=== PATIENT | female | born 1955 | race Caucasian/White ===

== ENCOUNTER 2018-06-06 08:22 | Observation (INO) ==
--- NOTE | 2018-06-04 09:37 | Anesthesiology Consultation ---
Date of Service June 04, 2018 Assessment & Plan Chart Review Chart Review: Acceptable Risk for Surgery and Patient NOT seen in Pre Admission Testing Consults Requested none ASA ASA4 Proposed Anesthesia Anesthesia Type: General History Surgery Operation Date: 06/06/18 10:35 Proposed Procedures p Bilateral Direct Laryngoscopy, - Jenn Jose MD s Esophagoscopy, - Jenn Jose MD s Tonsillectomy, Uvulopalatoplasty - Jenn Jose MD Height/Weight Height: 5 ft 1 in Weight: 112.037 kg Allergies Allergy/AdvReac Type Severity Reaction Status Date / Time scopolamine Allergy swelling Verified 05/30/18 13:18 Medications Home Medications Medication Instructions Recorded Confirmed Last Taken acetaminophen [Tylenol Extra 500 - 1,000 mg PO QID PRN 05/30/18 05/30/18 Unknown Strength] aspirin [Aspirin Low Dose] 81 mg PO QAM 05/30/18 05/30/18 Unknown fluticasone-vilanterol [Breo 1 inh INHALATION QAM 05/30/18 05/30/18 Unknown Ellipta] furosemide 20 mg PO DAILY PRN 05/30/18 05/30/18 Unknown losartan 50 mg PO QAM 05/30/18 05/30/18 Unknown montelukast [Singulair] 10 mg PO QAM 05/30/18 05/30/18 Unknown pantoprazole [Protonix] 40 mg PO QAM 05/30/18 05/30/18 Unknown tiotropium bromide [Spiriva with 1 cap INHALATION QAM 05/30/18 05/30/18 Unknown HandiHaler] Past Medical History Medical History Asthma GERD (gastroesophageal reflux disease) Glaucoma Hx of congestive heart failure Hypertension Morbid obesity Nausea and vomiting after administration of anesthetic agent Nodular thyroid disease Osteoarthritis Sleep apnea Past Family History Family History Father Family history of diabetes mellitus Past Surgical History Surgical History History of carpal tunnel surgery both hands History of cholecystectomy Hx of cardiac catheterization 2017? [place]; Was having s/s chest pain and nausea. Hx of cervical discectomy x2 Hx of section x2 Hx of foot surgery left Hx of shoulder surgery left Past Anesthesia History No Hx of Anesthesia Complications and No Family Hx of Anesthesia Complications History of PONV Yes Motion Sickness Screening History of Motion Sickness: No Social History Smoking Status: Former smoker Do You Dip or Chew Tobacco: No Smoking End Date: 30 yr ago Hx Alcohol Use: Yes Alcohol type: wine alcohol intake frequency: holidays/special occasions only Hx Substance Use: No Exercise / Class Metabolic Activity III < 4 Walking/Shop/Light housework Testing Electrocardiogram Date: 01/21/18 Findings: + NSR @ (at 81) Echocardiogram Date: 04/02/17 EF: 60 LV Function: normal RWMA: + none Valvular Disease: + no significant valvular disease Laboratory Results WBC: 8.42 Hc.1 Hct: 43 PLATELETS: 227 SODIUM: 143 POTASSIUM: 4.3 CHLORIDE: 108 CO2: 28 BUN: 20.2 CREATININE: 0.95 GLUCOSE: 112 PT: PTT: INR: UA: TYPE AND SCREEN:
--- NOTE | 2018-06-04 13:55 | History & Physical Report ---
Date of Service June 04, 2018 Assessment & Plan (1) Sleep apnea: direct laryngoscopy, esophagoscopy, tonsillectomy, uvulopalatoplasty (2) Laryngitis from reflux of stomach acid: direct laryngoscopy and esophagoscopy History of Present Illness Chief Complaint: sleep apnea, hoarseness 63 yo with sleep apnea, poor tolerance to CPAP, also hoarseness and sore throat Allergies Allergy/AdvReac Type Severity Reaction Status Date / Time scopolamine Allergy swelling Verified 05/30/18 13:18 Home Medications Home Medications Medication Instructions Recorded Confirmed Type acetaminophen [Tylenol Extra 500 - 1,000 mg PO QID PRN 05/30/18 05/30/18 History Strength] aspirin [Aspirin Low Dose] 81 mg PO QAM 05/30/18 05/30/18 History fluticasone-vilanterol [Breo 1 inh INHALATION QAM 05/30/18 05/30/18 History Ellipta] furosemide 20 mg PO DAILY PRN 05/30/18 05/30/18 History losartan 50 mg PO QAM 05/30/18 05/30/18 History montelukast [Singulair] 10 mg PO QAM 05/30/18 05/30/18 History pantoprazole [Protonix] 40 mg PO QAM 05/30/18 05/30/18 History tiotropium bromide [Spiriva with 1 cap INHALATION QAM 05/30/18 05/30/18 History HandiHaler] Past Med/Surg History Medical History Asthma GERD (gastroesophageal reflux disease) Glaucoma Hx of congestive heart failure Hypertension Morbid obesity Nodular thyroid disease Osteoarthritis Sleep apnea Surgical History History of carpal tunnel surgery both hands History of cholecystectomy Hx of cardiac catheterization 2017? [place]; Was having s/s chest pain and nausea. Hx of cervical discectomy x2 Hx of section x2 Hx of foot surgery left Hx of shoulder surgery left Nausea and vomiting after administration of anesthetic agent Family History Father Family history of diabetes mellitus Social History Preferred Language: Belarusian Communication Ability: Effective Beliefs That Will Affect Care: None Current Living Situation: Alone Other Information That Helps Us Care for You: No Feels Safe at Home: Yes Safety Concerns: Feels Safe At This Time Smoking Status: Former smoker Hx Alcohol Use: Yes Hx Substance Use: No Physical Exam Constitutional: WD/WN, vitals as above Eyes: PERRL, conjunctivae normal, anicteric sclerae ENMT: Mouth: + oropharynx abnormality (tonsils large, uvula swollen) Neck: trachea midline, no thyromegaly Respiratory: normal respiratory effort, lungs clear to auscultation Cardiovascular: RRR, no murmur, no edema
[~2018-06-06 08:22] MED LIST: CEFAZOLIN 2000MG 2,000 MG/15 ML SYR IV SCH; LR 15ML/HR IV SCH
[2018-06-06] MEDS ORDERED: NEOSTIGMINE METHYLSULFATE 5 MG/5 ML SYR ONE (11:56)
[2018-06-06] MEDS ORDERED: PROPOFOL IV EMULSION 10 MG/ML 20 ML VIAL IV ONE (11:56)
[2018-06-06] MEDS ORDERED: LIDOCAINE HCL 2% 2 ML VIAL/AMP(20MG/ML) INFIL ONE (11:56)
[2018-06-06] MEDS ORDERED: GLYCOPYRROLATE 0.2 MG/ML VIAL ONE (11:56)
[2018-06-06] MEDS ORDERED: DEXAMETHASONE SOD INJ 4 MG/ML VIAL ONE (11:56)
[2018-06-06] MEDS ORDERED: ONDANSETRON INJ 2 MG/ML 2 ML VIAL ONE (11:56)
[2018-06-06] MEDS ORDERED: MIDAZOLAM HCL 1 MG/ML 2ML VIAL ONE (11:57)
[2018-06-06] MEDS ORDERED: fentaNYL citrate 100 MCG/2 ML VIAL ONE ×2 (11:57)
--- NOTE | 2018-06-06 12:14 | History & Physical Bridge Note ---
Date of Service June 06, 2018 History & Physical Bridge Note I have examined the patient, reviewed the History & Physical and in the interval since the performance of the History & Physical I have noted the following changes of clinical significance: no changes noted
[2018-06-06] MEDS ORDERED: BUPIVACAINE/EPINEPHRINE 0.5% MPF 1:200,000 30 ML VIAL ONE (12:22)
[2018-06-06] MEDS ORDERED: ONDANSETRON INJ 2 MG/ML 2 ML VIAL IV PRN (12:23)
[2018-06-06] MEDS ORDERED: fentaNYL citrate 100 MCG/2 ML VIAL IV PRN (12:23)
[2018-06-06] MEDS ORDERED: ATROPINE SULFATE 0.1 MG/ML 10ML SYR IV PRN (12:23)
[2018-06-06] MEDS ORDERED: ePHEDrine sulfate 50 MG/ML AMP IV PRN (12:23)
[2018-06-06] MEDS ORDERED: ALBUTEROL 0.083% NEBU SOLN 3 ML VIAL INH PRN (12:23)
[2018-06-06] MEDS ORDERED: ALBUTEROL 0.083% NEBU SOLN 3 ML VIAL NEB STA (12:26)
[2018-06-06] MEDS ORDERED: ACETAMINOPHEN/HYDROCODONE ELIX 15 ML/CUP UDP PO PRN (13:40)
[2018-06-06] MEDS ORDERED: LORazepam 1 MG/2 ML VIAL IV PRN (13:40)
--- NOTE | 2018-06-06 13:45 | Operative Report ---
Post Operative Report Pre & Post Diagnosis Operation Date: 06/06/18 10:35 Pre-Op Diagnosis: Sleep Apnea; Chronic Laryngitis Post-Op Diagnosis: Sleep Apnea; Chronic Laryngitis Procedure Operation Date: 06/06/18 10:35 Actual Procedures p Direct Laryngoscopy,(Not Applicable) - Jenn Jose MD s Esophagoscopy,(Not Applicable) - Jenn Jose MD s Bilateral Tonsillectomy, Uvulopalatoplasty(Bilateral) - Jenn Jose MD Surgeon Jenn Jose MD Maintenance Mechanic Elevators None Estimated Blood Loss 100 Findings Consistent with Post-Op Diagnosis Specimens Right and left tonsil and uvula Anesthesia Type General Complications none Disposition Accompanied Patient To Recovery: Yes Disposition: Recovery Room Indications 63-year-old with constant lump sensation in the throat and also significant sleep apnea and intolerant of CPAP Description of Procedure She was brought to the operating room placed in the supine position general endotracheal anesthesia was induced and she was prepped and draped in the usual sterile manner. Dedo laryngoscope was used to visualize the hypopharynx epiglottis, vallecula and piriform sinus areas which were all noted to be normal. The endolarynx was inspected there was moderate edema of the vocal cords with no actual polyp formation. Rigid esophagoscopy was performed using the 30 cm rigid esophagoscope visualizing the cervical and mid esophagus noting the mucosa to be free of lesions. The esophagus scope was withdrawn. The mouthgag was placed and the peritonsillar area was injected with 0.5% Sensorcaine with 1-200,000 strength epinephrine. The soft palate was retracted using the red Finney catheter there was minimal adenoid tissue. Tonsillectomies were performed using the plasma knife. The uvula was resected of its anterior half using the #12 blade and hemostasis was controlled using the plasma wand. The flaps were cut with a V cut into the palatoglossus fold and the flap cut into the palatopharyngeus fold. The flap was rotated laterally into the V cut. All the mucosal edges were approximated with continuous 2-0 chromic sutures one on each side and tied in the midline at the uvula. The pharynx was irrigated clean with saline and she tolerated the procedure well and was taken to the recovery area in satisfactory condition. I attest to the content of the Intraoperative Record and any orders documented therein. Any exceptions are noted below.
--- NOTE | 2018-06-06 14:22 | Anesthesiology Progress Note ---
Date of Service June 06, 2018 Anesthesia Post Procedure Vital Signs Vital Signs: Temp Pulse Pulse Resp BP Pulse Ox 06/06/18 14:15 77 18 155/82 H 98 06/06/18 14:05 70 18 150/80 H 96 06/06/18 13:55 69 18 148/80 H 97 06/06/18 13:48 36.0 C L 78 18 143/75 H 91 06/06/18 12:30 89 18 100 06/06/18 08:59 36.6 C 92 H 22 174/91 H 97 Notes Mental Status: alert / awake / arousable and participated in evaluation Patient Amnestic to Procedure: Yes Nausea / Vomiting: adequately controlled Pain: adequately controlled Airway Patency, RR, SpO2: stable & adequate BP & HR: stable & adequate Hydration State: stable & adequate Anesthetic Complications: no major complications apparent and Pt Satisfied with anesthetic care
[2018-06-06] MEDS: ONDANSETRON INJ 2 MG/ML 2 ML VIAL IV PRN (15:44)
[2018-06-06] MEDS: D5W AND 1/2NSS + 20MEQ KCL 20 MEQ/1,000 ML BAG IV SCH (17:18)
[2018-06-06] MEDS: MoRPHine SULFATE 2 MG/ML CARP IV PRN (18:43)
[2018-06-06] MEDS ORDERED: Nursing to Pharmacy Communication ONE (19:00)
[2018-06-06] MEDS ORDERED: FUROSEMIDE 20 MG TAB PO PRN (19:00)
[2018-06-06] MEDS: MoRPHine SULFATE 4 MG/ML 1 ML CARP\\VIAL IV PRN (22:46)
[2018-06-07] MEDS: MoRPHine SULFATE 4 MG/ML 1 ML CARP\\VIAL IV PRN (05:04)
--- NOTE | 2018-06-07 07:04 | Discharge Summary ---
Date of Service June 07, 2018 Admission HPI Per Admitting Provider 63 yo with sleep apnea, poor tolerance to CPAP, also hoarseness and sore throat Admission Exam (Per Admitting) Constitutional WD/WN, vitals as above Eyes PERRL, conjunctivae normal, anicteric sclerae ENMT Mouth: + oropharynx abnormality (tonsils large, uvula swollen) Neck trachea midline, no thyromegaly Respiratory normal respiratory effort, lungs clear to auscultation Cardiovascular RRR, no murmur, no edema Discharge Data Procedures Performed Operation Date: 06/06/18 10:35 Actual Procedures p Direct Laryngoscopy,(Not Applicable) - Jenn Jose MD s Esophagoscopy,(Not Applicable) - Jenn Jose MD s Bilateral Tonsillectomy, Uvulopalatoplasty(Bilateral) - Jenn Jose MD Hospital Course (1) Sleep apnea: direct laryngoscopy, esophagoscopy, tonsillectomy, uvulopalatoplasty, no complications, discharged to home with friend (2) Laryngitis from reflux of stomach acid: direct laryngoscopy and esophagoscopy
[2018-06-07] MEDS: ONDANSETRON INJ 2 MG/ML 2 ML VIAL IV PRN (08:35)
[2018-06-07] MEDS ORDERED: LOSARTAN POTASSIUM 50 MG TAB PO SCH (09:00)
[2018-06-07] MEDS: D5W AND 1/2NSS + 20MEQ KCL 20 MEQ/1,000 ML BAG IV SCH (09:51)
[2018-06-07] MEDS: MoRPHine SULFATE 2 MG/ML CARP IV PRN (09:54)
== END 2018-06-07 12:13 | disposition home or self-care (01) ==
LOC: ASU 08:22 → 3W 08:22
PROC: M.ESOPH (2018-06-06 10:35)